=== PATIENT | female | born 1955 | race Caucasian/White ===

== ENCOUNTER 2016-07-02 03:11 | Emergency (ER) | payer OTHER ==
[~2016-07-02] VITALS: Ht 154.9 cm; Wt 79.6 kg
[~2016-07-02 03:11] MED LIST: ALBU1NEB10 INH; ALBUAER2 INH; FLNIN NAE; PANT40TA PO; PRAV20TA PO; PRED10TA PO
[2016-07-02 03:16] VITALS: TEMP 36.6; Ht 154.9 cm; Wt 79.6 kg
[2016-07-02] MEDS ORDERED: KETOROLAC TROMETHAMINE 60 MG/2 ML VIAL IM STA (03:41)
[2016-07-02] MEDS ORDERED: ONDANSETRON 4MG OD TAB PO ONE (03:45)
[2016-07-02] MEDS ORDERED: OXYCODONE/ACETAMINOPHEN 5-325 TAB PO ONE (03:45)
[2016-07-02 06:13] VITALS: BP 125/80; PULSE 83; O2SAT 99
[2016-07-02] MEDS ORDERED: ONDANSETRON HOME PACK 4MG OD TAB PO ONE (06:15)
[2016-07-02] MEDS ORDERED: PERCOCET HOME PACK PO ONE (06:15)
[2016-07-02] MEDS ORDERED: ONDA4TAB10 SL (06:23)
[2016-07-02] MEDS ORDERED: OXYC-57 PO (06:23)
[2016-07-02] MEDS ORDERED: PRED50TA PO (06:23)
--- NOTE | 2016-07-02 06:24 | EMERGENCY ROOM VISIT NOTE ---
History First contact with patient: 03:30 Chief Complaint: ARM PAIN Stated Complaint: RIGHT ARM PAIN History of Present Illness The patient is a 61 year old female who presents to the Emergency Department by private vehicle for evaluation of her RIGHT arm pain. The patient reports that she's had symptoms of pain in the RIGHT shoulder. The past several months. Last evening, however, her symptoms progressively worsened resulting in intense pain to the anterior surface of the RIGHT shoulder which is worse with range of motion activities. The patient reports radiation down the arm. She denies any falls or trauma to the affected area. She is tried [id number] medications with minimal relief of symptoms. The patient has follow-up with orthopedic surgery in the past, however never for this issue. The patient rates her current discomfort as a 9/10. She denies any numbness or tingling into the distal tremor. She denies any associated neck pain, chest pain, palpitations, pleuritic pain, nausea, or vomiting. Review of Systems A complete 10-point Review of Systems was discussed with the patient, with pertinent positives and negatives listed in the History of Present Illness. All remaining Review of Systems questions can be considered negative unless otherwise specified. Past Medical/Surgical History Medical Problems: (1) Cholesteatoma of attic (2) Coronary artery disease (3) Reflux Social History Smoking Status: Never Smoker Smokeless Tobacco Use: No Alcohol Use: none Drug Use: none Marital Status: Housing Status: lives with family Occupation Status: unemployed Current/Historical Medications Scheduled Amlodipine (Norvasc), 10 MG PO DAILY Fluticasone Propionate (Nasal) (Flonase Allergy Relief), 1 SPRAY AMALIA DAILY Losartan Potassium (Cozaar), 25 MG PO DAILY Pantoprazole (Protonix), 40 MG PO DAILY Prednisone (Prednisone), 50 MG PO DAILY Rosuvastatin Calcium (Crestor), 5 MG PO DAILY Scheduled PRN Albuterol Hfa (Ventolin Hfa), 2 PUFFS INH Q6H PRN for SOB/Wheezing Albuterol Sulf (Albuterol Sulfate), 1 DOSE NEB QID PRN for SOB/Wheezing Ondasetron Odt (Zofran Odt), 1 TAB SL Q6 PRN for Nausea or Vomiting Oxycodone/Acetaminophen 5MG/325MG (Percocet 5MG/325MG), 1-2 TABS PO Q6H PRN for Pain Allergies Coded Allergies: NSAIDs (Verified Allergy, Unknown, ULCER, 07/02/16) Hydrocodone (Verified Adverse Reaction, Unknown, "MAKES HER LOOPY", ) Physical Exam Vital Signs Date Time Temp Pulse Resp B/P Pulse Ox O2 Delivery O2 Flow Rate FiO2 07/02/16 06:13 83 18 125/80 99 Room Air 07/02/16 03:16 36.6 102 18 166/97 96 Room Air Pain Rating (0-10): 9 Physical Exam VITAL SIGNS - Vital signs and nursing notes were reviewed. GENERAL - 61-year-old female appearing her stated age and in noticeable discomfort throughout the exam. NECK - FROM of the cervical spine. No spinous process or paraspinal muscle tenderness to palpation. No nuchal rigidity. LUNGS - Chest wall symmetric without accessory muscle use, intercostals retractions, or central cyanosis. Normal vesicular breath sounds CTA B/L. No wheezes, rales, or rhonchi appreciated. CARDIAC - RRR with S1/S2. No murmur, rubs, or gallops appreciated. MUSCULOSKELETAL - Active ROM of the RIGHT shoulder was limited in all directions. 30 of abduction. No step-off deformities of the clavicle were palpable. No tenderness over the AC joint with palpation. Moderate tenderness to palpation at the bicipital insertion. No tenderness to palpation over the deltoid. EMPTY CAN TEST: Moderate pain and weakness against examiner's force. NEUROLOGIC - SENSORY: Spinothalamic tract was found to be intact with ability to discriminate sharp versus dull sensation at the level of the RIGHT side of the neck down to the fingertips. No sensory deficits of the dorsal column were appreciated utilizing light touch for evaluation. VASCULAR - Capillary refill was brisk. +3/5 radial pulse palpated. Medical Decision & Procedures ER Provider Diagnostic Interpretation: Radiological imaging and reports were reviewed by myself. Radiologist's Interpretation as follows: RIGHT SHOULDER MIN 2 VIEWS ROUTINE CLINICAL HISTORY: pain Right pain COMPARISON: None. DISCUSSION: The bones and joint spaces appear intact. There is no evidence of fracture, dislocation or bony disease. There is no evidence for soft tissue swelling. IMPRESSION: Negative study. ULTRASOUND RIGHT UPPER EXTREMITY VENOUS CLINICAL HISTORY: Right arm pain and swelling. COMPARISON STUDY: No priors. TECHNIQUE: Real-time, grayscale, and color Doppler sonography of the deep veins of the right upper extremity is performed. Compression and augmentation were utilized. FINDINGS: There is no sonographic evidence of deep venous thrombosis identified in the right upper extremity. The right internal jugular, axillary, and brachial veins are patent and normally compressible. Normal venous waveforms and augmentation are seen within the right subclavian vein. The cephalic and basilic veins are clear. The visualized radial and ulnar veins are patent. There is a 1 cm pocket of simple appearing fluid seen anterior to the right proximal humerus. IMPRESSION: 1. There is no sonographic evidence of deep venous thrombosis identified in the right upper extremity. 2. There is a 1 cm pocket of simple appearing fluid seen anterior to the proximal humerus. This is of indeterminant etiology and significance. Medications Administered Medications (Trade) Dose Ordered Sig/Reba Route Start Time Stop Time Status Last Admin Dose Admin Oxycodone/ Acetaminophen (Percocet 5-325mg Tab) 1 tab NOW ONCE PO 07/02/16 03:45 07/02/16 03:46 DC 07/02/16 03:55 1 TAB Ondansetron HCl (Zofran Odt) 4 mg ONE ONCE PO 07/02/16 03:45 07/02/16 03:46 DC 07/02/16 03:55 4 MG Ketorolac Tromethamine (Toradol Inj) 60 mg NOW STAT IM 07/02/16 03:41 07/02/16 03:42 DC 07/02/16 03:56 60 MG Oxycodone/ Acetaminophen (Percocet 5/ 325MG Home Pack) 1 homepack UD ONCE PO 07/02/16 06:15 07/02/16 06:16 DC 07/02/16 06:15 1 HOMEPACK Ondansetron HCl (ZOFRAN ODT 4MG Home Pack) 1 homepack UD ONCE PO 07/02/16 06:15 07/02/16 06:16 DC 07/02/16 06:15 1 HOMEPACK ED Course Patient was seen and evaluated by myself. Patient was provided 1 Percocet, Zofran, and Toradol intramuscularly for pain. X-ray of the affected shoulder was obtained. On reevaluation, the patient feels slightly better. Their concern as they feel the patient's hand is swollen. Because of this, an ultrasound of the RIGHT upper extremity was obtained. Ultrasound demonstrates the above-mentioned findings. The patient was educated on today's findings. She was provided a prescription for Percocet and Zofran. She cannot use NSAIDs. Because of this, the patient was placed on prednisone. The patient was provided an arm sling for comfort. She will follow-up with orthopedic surgery from today's visit. She will return for any changing/worsening symptoms. Patient discharged home afebrile and in good condition. Medical Decision Given the patient's presentation and stated complaints, I did elect to perform the above-mentioned workup. The patient presents today with worsening pain to the RIGHT shoulder. Her pain is reproducible and worse with range of motion. She has tenderness to palpation over the bicipital flexor tendon. X-ray is unremarkable. Ultrasound concerning for collection of fluid in the bicipital tendon area. This likely demonstrates the diagnosis of bicipital tendinitis versus bursitis. Regardless, the patient was placed on NSAIDs as well as pain medication for breakthrough pain. She will follow-up with [facility] with whom she is established. She will return for any changing/ worsening symptoms. Patient discharged home afebrile and in good condition. In the evaluation and treatment of this patient, the following differential diagnoses were considered: Shoulder Contusion, Shoulder Fracture, Shoulder Dislocation, Thoracic Outlet Syndrome, Adhesive Capsulitis, Rotator Cuff Tear, Proximal Clavicle Head Fracture, Apical Pneumonia, Pneumothorax, Hemothorax, or TB. Impression Primary Impression: Bicipital tendinitis of right shoulder Departure Information Dispostion Home / Self-Care Condition GOOD Prescriptions Ondasetron Odt (ZOFRAN ODT) 4 Mg Tab 1 TAB SL Q6 Y for Nausea or Vomiting, #20 TAB Prov: Aleks Garcia PA-C 07/02/16 Prednisone (Prednisone) 50 Mg Tab 50 MG PO DAILY for 5 Days, #5 TAB Prov: Aleks Garcia PA-C 07/02/16 Oxycodone/Acetaminophen 5MG/325MG (PERCOCET 5MG/325MG) Tab 1-2 TABS PO Q6H Y for Pain, #20 TAB For Initial Treatment Prov: Aleks Garcia PA-C 07/02/16 Referrals Yumiko Koenig D.O. (PCP) Quinton Unger M.D. Patient Instructions ED Bursitis, [facility] Additional Instructions You have been treated in the Emergency Department for Shoulder Pain - bicipital tendinitis. You have received pain medicine in the emergency department which impairs your ability to operate a vehicle. It is illegal for you to drive after receiving these medicines. You have been prescribed Percocet to be used for pain control. This is a narcotic medication. You cannot drive or consume alcohol while on this medicine. This medicine should only be used for pain that cannot be controlled with [id number] pain medicines. You have been prescribed Zofran to be used for any nausea or vomiting. Take as prescribed. You have been prescribed Prednisone 50 mg to be taken orally once a day for the next 5 days. This is an anti-inflammatory medicine to be used to help minimize your symptoms. You should take the COMPLETE course of the medication. For pain control, you can use the following mirk-[id number] medicines (if >12 yo): - Regular strength (325mg/tab) Tylenol (acetaminophen) 2 tabs every 4-6 hours as needed. Do not exceed 12 tablets in a 24 hour period. Avoid taking more than 4 grams (4000 mg) of Tylenol per day. This includes any other sources of acetaminophen you may take on a regular basis. - Regular strength (200 mg/tab) Advil (ibuprofen) 1-2 tabs every 4-6 hours as needed. Do not exceed a dose of 3200 mg per day. If this is a recent injury (<24 hrs), ice can be applied to the area of pain for the first 3 days to help decrease pain and inflammation. You have been provided the number for an Orthopaedic Surgeon. You should call this number as soon as possible to establish a follow-up visit from today's Emergency Department visit. Keep the shoulder brace in place until evaluated by Orthopedics. Return to the Emergency Department if your current symptoms worsen despite treatment course outlined above, or if you develop any of the following symptoms : intractable pain despite aforementioned treatment course or new onset of numbness or tingling of the arm.
[2016-07-02] MEDS ORDERED: AMLO-114 PO (06:27)
[2016-07-02] MEDS ORDERED: LOSA1TAB PO (06:27)
[2016-07-02] MEDS ORDERED: ROSU5TAB PO (06:27)
[2016-07-02] MEDS ORDERED: FLUT0.15 NAE (06:29)
[2016-07-02] MEDS ORDERED: VNTHFA/IN INH (06:29)
[2016-07-02] MEDS ORDERED: ALBINSX NEB (06:29)
--- NOTE | 2016-07-02 07:13 | DIAGNOSTIC IMAGING REPORT ---
ULTRASOUND RIGHT UPPER EXTREMITY VENOUS CLINICAL HISTORY: Right arm pain and swelling. COMPARISON STUDY: No priors. TECHNIQUE: Real-time, grayscale, and color Doppler sonography of the deep veins of the right upper extremity is performed. Compression and augmentation were utilized. FINDINGS: There is no sonographic evidence of deep venous thrombosis identified in the right upper extremity. The right internal jugular, axillary, and brachial veins are patent and normally compressible. Normal venous waveforms and augmentation are seen within the right subclavian vein. The cephalic and basilic veins are clear. The visualized radial and ulnar veins are patent. There is a 1 cm pocket of simple appearing fluid seen anterior to the right proximal humerus. IMPRESSION: 1. There is no sonographic evidence of deep venous thrombosis identified in the right upper extremity. 2. There is a 1 cm pocket of simple appearing fluid seen anterior to the proximal humerus. This is of indeterminant etiology and significance. Electronically signed by: Ronni Fisher M.D. 07/02/2016 7:12 AM Dictated Date/Time: 07/02/2016 7:10 AM
--- NOTE | 2016-07-02 07:58 | DIAGNOSTIC IMAGING REPORT ---
RIGHT SHOULDER MIN 2 VIEWS ROUTINE CLINICAL HISTORY: pain Right pain COMPARISON: None. DISCUSSION: The bones and joint spaces appear intact. There is no evidence of fracture, dislocation or bony disease. There is no evidence for soft tissue swelling. IMPRESSION: Negative study. Electronically signed by: Arnie Zimmerman M.D. 07/02/2016 7:57 AM Dictated Date/Time: 07/02/2016 7:56 AM
== END 2016-07-02 06:45 | disposition home or self-care (01) ==
LOC: C.EDB 03:12 → C.EDA 06:45
DX: M75.31 Calcific tendinitis of right shoulder (principal); I25.10 Atherosclerotic heart disease of native coronary artery without angina pectoris

== ENCOUNTER 2017-12-24 14:28 | Emergency (ER) | payer OTHER ==
[~2017-12-24] VITALS: Ht 157.5 cm; Wt 84.5 kg
[~2017-12-24 14:28] MED LIST changes: +ALBINSX NEB; -ALBU1NEB10 INH; -ALBUAER2 INH; +AMLO10TA3 PO; -FLNIN NAE; +FLUT0.15 NAE; +LOSA1TAB PO; -PRAV20TA PO; -PRED10TA PO; +ROSU5TAB PO; +VNTHFA/IN INH
[2017-12-24 14:31] VITALS: TEMP 36.3; Ht 157.5 cm; Wt 84.5 kg
[2017-12-24] MEDS ORDERED: LIDOCAINE 1% BUFFERED INJ 20 ML VIAL INFIL ONE (15:00)
[2017-12-24] MEDS ORDERED: OXYCODONE HCL IR 5 MG TAB (IMMEDIATE RELEASE) PO STA (15:48)
[2017-12-24] MEDS ORDERED: ONDANSETRON 4MG OD TAB PO ONE (16:00)
[2017-12-24] MEDS ORDERED: CEPHALEXIN MONOHYDRATE 250 MG CAP PO ONE (16:00)
[2017-12-24] MEDS ORDERED: CEPH500C PO (16:25)
[2017-12-24] MEDS ORDERED: OXYCODONE IR HOME PACK PO ONE (16:30)
[2017-12-24] MEDS ORDERED: ONDANSETRON HOME PACK 4MG OD TAB PO ONE (16:30)
[2017-12-24 16:44] VITALS: BP 141/76; PULSE 79; O2SAT 95
--- NOTE | 2017-12-24 22:06 | EMERGENCY ROOM VISIT NOTE ---
History Report prepared by Sylvester: Marianne Evans Under the Supervision of: Dr. Lam Raymond M.D. 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 She states when she first noticed it 1 year ago, it looked like a small pimple and did not think much of it. She went to see her PCP about 2 months ago due to her pain and was told it was a sebaceous cyst however, her PCP was only able to get the patient an appointment on February 27. The patient reports she was in significant pain this morning, so her tried draining some of the cyst with a clean diabetic ken however it did not drain much, so she came to the ED today. She describes her pain as a soreness, notes it feels very hard, and it seems like there is 3 of them. She states lying on her neck worsens her pain. Pt has some nausea but denies LOC, headache, fevers, chills, diaphoresis, visual changes, neck pain, chest pain, breathing difficulties, vomiting, abdominal pain, back pain, melena, hematochezia, urinary symptoms, numbness, weakness, lymphadenopathy, rash, or other complaints. 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 A total of six systems were reviewed and were otherwise negative. Past Medical & Surgical Medical Problems: (1) Cholesteatoma of attic (2) Coronary artery disease (3) Reflux Family History No pertinent family history Social History Smoking Status: Never Smoker Alcohol Use: none Drug Use: none Marital Status: Housing Status: lives with family Occupation Status: unemployed Current/Historical Medications Scheduled Amlodipine (Norvasc), 10 MG PO DAILY Cephalexin Monohydrate (Keflex), 500 MG PO QID Fluticasone Propionate (Nasal) (Flonase Allergy Relief), 1 SPRAY AMALIA DAILY Losartan Potassium (Cozaar), 25 MG PO DAILY Pantoprazole (Protonix), 40 MG PO DAILY Rosuvastatin Calcium (Crestor), 5 MG PO DAILY Scheduled PRN Albuterol Hfa (Ventolin Hfa), 2 PUFFS INH Q6H PRN for SOB/Wheezing Albuterol Sulf (Albuterol Sulfate), 1 DOSE NEB QID PRN for SOB/Wheezing Allergies Coded Allergies: NSAIDs (Verified Allergy, Unknown, ULCER, 12/24/17) Hydrocodone (Verified Adverse Reaction, Unknown, "MAKES HER LOOPY", ) Physical Exam Vital Signs Date Time Temp Pulse Resp B/P (MAP) Pulse Ox O2 Delivery O2 Flow Rate FiO2 12/24/17 16:44 79 141/76 95 12/24/17 16:04 89 18 165/77 97 Room Air 12/24/17 14:31 36.3 82 18 159/84 98 Room Air Physical Exam GENERAL: Awake, alert, well-appearing, in no distress HENT: Normocephalic, atraumatic. Oropharynx unremarkable. EYES: Normal conjunctiva. Sclera non-icteric. NECK: Supple. No nuchal rigidity. FROM. Red, indurated, tender, and fluctuant cyst like lesion on right posterior neck. Few scattered pustules on the cyst. RESPIRATORY: Clear to auscultation. No wheezes. No rales. Normal respiratory effort. CARDIAC: Normal rate. Normal rhythm. No murmurs. No rubs. Extremities warm and well perfused. Medical Decision & Procedures Medications Administered Medications (Trade) Dose Ordered Sig/Reba Route Start Time Stop Time Status Last Admin Dose Admin Ondansetron HCl (Zofran Odt) 4 mg ONE ONCE PO 12/24/17 16:00 12/24/17 16:01 DC 12/24/17 16:00 4 MG Cephalexin Monohydrate (Keflex Cap) 500 mg NOW ONCE PO 12/24/17 16:00 12/24/17 16:01 DC 12/24/17 16:00 500 MG Oxycodone HCl (Roxicodone Immediate Rel Tab) 5 mg NOW STAT PO 12/24/17 15:48 12/24/17 15:51 DC 12/24/17 16:00 5 MG Oxycodone HCl (Roxicodone Immediate Rel 5MG Home Pack) 1 homepack UD ONCE PO 12/24/17 16:30 12/24/17 16:31 DC 12/24/17 16:38 1 HOMEPACK Ondansetron HCl (ZOFRAN ODT 4MG Home Pack) 1 homepack UD ONCE PO 12/24/17 16:30 12/24/17 16:31 DC 12/24/17 16:38 1 HOMEPACK Procedure Incision & Drainage Indication: Infected cyst Location: Right posterior neck Verbal consent was obtained after the risks and benefits were explained, including but not limited to bleeding, scarring, infection, pain, and bone/joint /nerve damage. At this time, the risks of the procedure are less than the risks of NOT performing the procedure. A time out was taken and the correct patient and site identified. The skin was prepped with betadine and a sterile field set. The wound was anesthetized with 11 ml of 1% lidocaine without epinephrine. The abscess cavity was entered with a number 11 blade and blood, pus, and sebaceous material expressed. Copious irrigation was performed using normal saline solution. The wound was explored for foreign bodies and none found. Debridement was not performed. Packing placed and a sterile dressing applied. Detailed wound care instructions and signs and symptoms of worsening infection reviewed with the patient. No complications and the patient tolerated the procedure well. ED Course 1448: The patient was evaluated in room A10. A complete history and physical exam was performed. 1457: I performed and incision and drainage procedure at this time. 1548: Ordered Oxycodone HCl 5 mg PO 1600: Ordered Keflex Cap 500 mg PO, Zofran Odt 4 mg PO 1618: Discussed the patient's case with Dr. Jackson, General Surgery. The patient will have an appointment to follow with Dr. Jackson. 1619: I reevaluated the patient. Discussed results and discharge instructions: She verbalized understanding and agreement. The patient is ready for discharge. Medical Decision Patient presents emergency department complaining of swelling and pain in an area of her pre-existing cyst on the back of her neck. Differential includes abscess, sebaceous cyst, epidermal inclusion cyst, cellulitis, as well as others. The examination seemed to be most consistent with an infected sebaceous cyst. I discussed treatment options with the patient. She consented to incision and drainage. This was performed as above. The patient was given Zofran, oxycodone, and Keflex. Culture sent. She was referred to general surgery. She will likely need a formal excision after the infection is treated. I gave my usual and customary discussion regarding this issue. By the evaluation outlined above other emergent etiologies such as those listed in the differential, as well as others, were deemed relatively unlikely. The patient was educated about the findings as listed above. All questions were answered and the patient was pleased with the treatment. Return instructions were outlined and the patient was discharged in stable condition. The patient was referred to surgery for follow-up for a recheck of the current condition. Medication Reconcilliation Current Medication List: was personally reviewed by me Blood Pressure Screening Patient's blood pressure: Elevated blood pressure Blood pressure disposition: Elevated BP felt to be situational Consults Time Called: 1550 Consulting Physician: Dr. Jackson, General Surgery Returned Call: 1611 Discussed the patient's case with Dr. Jackson, General Surgery. The patient will have an appointment to follow with Dr. Jackson. Impression Primary Impression: Infected sebaceous cyst Scribe Attestation The scribe's documentation has been prepared under my direction and personally reviewed by me in its entirety. I confirm that the note above accurately reflects all work, treatment, procedures, and medical decision making performed by me. Departure Information Dispostion Home / Self-Care Prescriptions Cephalexin Monohydrate (Keflex) 500 Mg Cap 500 MG PO QID, #39 CAP Prov: Lam Raymond MD 12/24/17 Referrals Yumiko Koenig D.O. (PCP) Forms HOME CARE DOCUMENTATION FORM, IMPORTANT VISIT INFORMATION, WORK / SCHOOL INSTRUCTIONS Patient Instructions My [facility] Additional Instructions WOUND CARE INSTRUCTIONS: Cephalexin(Keflex) 500mg: Take one pill four times daily for 10 days for your skin infection. All antibiotics can cause diarrhea. If this occurs and you feel worse or it does not resolve in 1-2 days follow up with your doctor or return to the Emergency Department as this could be signs of serious underlying problems. Any medication can cause an allergic reaction, stop the pills immediately and return to the ER for rash, hives, breathing difficulties, or swelling. OxyIR 5 mg: Take 1-2 pills every 6 hours as needed for pain. Avoid alcohol, operating machinery or dangerous equipment, working on ladders or roofs, DRIVING , or situations where being under the influence may be dangerous. Zofran 4 mg oral dissolving tablets: take one tablet and allow it to melt in your mouth every 4 hours as needed for nausea. Tylenol: Take 1000 mg every 6 hours as needed for pain. Do not take more than 3000 mg in a 24 hour period. Bacitracin to wounds once daily. Remove the packing in 48 hours. Keep clean and covered. Use a non-stick dressing such as a large band-aid. Change the dressings once a day. Apply direct pressure for any bleeding. Return to the ER immediately for spreading redness, fevers, pus-like drainage, severe pain, or as needed. Follow-up with Dr. Jackson of general surgery on January 02 at 9:20 AM for recheck and further treatment of the cyst.
== END 2017-12-24 16:44 | disposition home or self-care (01) ==
LOC: C.EDB 14:30 → C.EDA 16:44
DX: L72.3 Sebaceous cyst (principal); I25.10 Atherosclerotic heart disease of native coronary artery without angina pectoris; K21.9 Gastro-esophageal reflux disease without esophagitis; Z79.899 Other long term (current) drug therapy; Z88.8 Allergy status to other drugs, medicaments and biological substances; Z88.5 Allergy status to narcotic agent